=== PATIENT | female | born 1980 | race African-American/Black ===

== ENCOUNTER 2025-02-08 08:52 | Emergency (ER) | payer OTHER, SELFPAY ==
[2025-02-08 09:08] VITALS: BP 125/66; PULSE 51; RESP 16; TEMP 36.9; O2SAT 100
--- NOTE | 2025-02-08 09:14 | ED_ITS ---
HPI - Eye Problem General Chief complaint: Eye Problems Stated complaint: foreign body R eye? Time Seen by Provider: 02/08/25 09:56 44-year-old female presents to the ER complaining of right eye discomfort. Patient states she believes her right eye was bothering her last night with today when she was driving to work she developed worsening pain and swelling to her eye. Patient denies any vision changes the says it hurts to open her eye. Patient states that feels like there is something in her eye. Patient denies any dizziness, lightheadedness headaches, nausea, vomiting, or any other symptoms. Focused HPI: GENERAL: Well-appearing, well-nourished, and in no acute distress. HEAD: Normocephalic, atraumatic. EYES: SCLERA CLEAR/WHITE. CONJUNCTIVA NORMAL. PUPILS PERRLA. EXTRAOCULAR MOVEMENTS INTACT. RIGHT UPPER EYELID EDEMATOUS. NEURO: ?Alert and oriented x3. History of Present Illness HPI Narrative: HPI listed in MSE. Related Data Allergies Allergy/AdvReac Type Severity Reaction Status Date / Time No Known Allergies Allergy Verified 02/08/25 09:10 Review of Systems Review of Systems: CONSTITUTIONAL: Denies fever, chills, or sweats. EYES: Denies visual changes, redness, or discharge. Positive for foreign body sensation and eyelid swelling. ENT: Denies rhinorrhea, congestion, sore throat, or otalgia. CARDIOVASCULAR: Denies chest pain, palpitations, or edema. RESPIRATORY: Denies cough or dyspnea. GASTROINTESTINAL: Denies abdominal pain, nausea, vomiting, or diarrhea. GENITOURINARY: Denies dysuria or hematuria. SKIN: Denies rash or itching. MUSCULOSKELETAL: Denies back pain, joint pain, or myalgia. NEUROLOGIC: Denies headache, numbness, or weakness. PSYCHIATRIC: Denies anxiety or depression. All other systems reviewed are negative, except as documented in HPI. Exam Narrative: GENERAL: This is a well-nourished, well-developed adult, in no apparent distress. They are non ill-appearing, nontoxic appearing. HEAD: normocephalic, atraumatic. EYES: Sclera clear/white. Vision is grossly intact. Conjunctiva normal. Extraocular movements intact. Pupils PERRLA. Right upper eyelid edematous, no redness, nontender. Right lower eyelid normal. Left upper and lower eyelids normal. Eversion of right upper and lower eyelid without any evidence of retained foreign body or stye. Wood's lamp exam with fluorescein staining of right eye: No dendritic lesions, no corneal abrasion, no corneal laceration, no vitreous humor. Tonopen of right eye is 20mmhg. EARS: External ears normal, NOSE: External nose normal THROAT: Mucous membranes moist, NECK: Neck supple, CARDIOVASCULAR: Regular rate and rhythm RESPIRATORY: Respiratory rate normal, respiratory effort nonlabored, no respiratory distress SKIN: warm, Dry, intact with no suspicious lesions or rash, good texture and turgor. NEURO: awake, alert, and oriented to person, place and time. There were no obvious focal neurologic abnormalities. EXTREMITIES: No joint tenderness, effusion, or edema noted. Course Vital Signs Vital signs: Vital Signs Temperature 98.4 F 02/08/25 09:08 Pulse Rate 51 L 02/08/25 09:08 Respiratory Rate 16 02/08/25 09:08 Blood Pressure 125/66 02/08/25 09:08 Pulse Oximetry 100 02/08/25 09:08 Oxygen Delivery Room Air 02/08/25 09:08 Temperature 98.4 F 02/08/25 09:08 Pulse Rate 51 L 02/08/25 09:08 Respiratory Rate 16 02/08/25 09:08 Blood Pressure 125/66 02/08/25 09:08 Pulse Oximetry 100 02/08/25 09:08 Oxygen Delivery Room Air 02/08/25 09:08 MDM - Eye Problem MDM Narrative Medical decision making narrative: No evidence corneal abrasion, globe rupture, or retained foreign body. Tonopen of right eye 20mmhg. No stye. No evidence of infection, no redness, no swelling, no pain. Recommend follow-up with ophthalmology. Discussed physical exam findings. Advised supportive measures and signs/symptoms to go to the ER. Pt is appropriate for outpt treatment and f/u. Differential Diagnosis Differential diagnosis: Likely corneal abrasion, conjunctivitis, periorbital cellulitis and other (Glaucoma) Discharge Plan Discharge Clinical Impression: Discomfort of right eye Patient Disposition: Home Condition: Stable Instructions: Eyelid Swelling (ED) Additional Instructions: Your eye exam was unremarkable. Pressure is normal in your right eye. Please follow-up with your eye doctor symptoms persist. If you develops severe eye pain, nausea, vomiting, headaches, vision loss, vision changes, any serious concerns please return to the ER. Patient Language: [place] Citizen Follow-up/Referrals: UNKNOWN,DOCTOR [Primary Care Provider] - Stand Alone Forms: Work/School Release IP Time of Disposition: 10:34
--- OUTSIDE RECORDS SUMMARY | 2025-02-08 11:06 | XMS_ITS | Clinical Summary ---
Author Organization [facility] Address [address] [place] [address] Care Team Providers Care Supervisor [employer] Name Role Phone Jason Larson MD Primary Care Provider [phone] Source Comments [facility],non-owned Affiliates and Associated Physician Practices is amultiple site organization consisting of ambulatory clinics and hospital sitesin [place], [place] and [place]. This disclosure is being madepursuant to the Care Everywhere program and may not contain all information available regarding this patient. Last updated 18.[facility] Allergies No known active allergies Medications * Be aware that medications may not be up to date on this document. Alwaysverify current medications with the patient. lorazepam (ATIVAN) 1 MG tablet Take 1 Tab by mouth every 2 hours as needed for Anxiety. sever anxiety 10 0 12/29/2009 Active cloNIDine (CATAPRES) 0.1 MG tablet Take 1 Tab by mouth every 4 hours as needed for severe anxiety 20 0 12/29/2009 Active zolpidem (AMBIEN) 10 MG tablet Take 1 Tab by mouth nightly as needed for Insomnia. 10 0 12/29/2009 Active methocarbamol (ROBAXIN) 750 MG tablet Take 1 Tab by mouth 3 times daily as needed for Muscle Spasms. 30 0 12/29/2009 Active famotidine (PEPCID) 20 MG tablet Take 1 Tab by mouth daily. 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 Gender Identity Not on file Sexual Orientation Not on file Last Filed Vital Signs Vital Sign Reading Time Taken Comments Blood Pressure 123/81 12/29/2009 8:13 AM CDT Pulse 50 12/29/2009 8:13 AM CDT Temperature 36.7 C (98 F) 12/29/2009 8:13 AM CDT Respiratory Rate 18 12/29/2009 8:13 AM CDT Oxygen Saturation 99% 12/29/2009 8:13 AM CDT Inhaled Oxygen Concentration - - Weight 59 kg (130 lb) 12/27/2009 3:14 PM CDT Height 157.5 cm (5' 2) 12/27/2009 3:14 PM CDT Body Mass Index 23.78 12/27/2009 3:14 PM CDT Plan of Treatment Health Maintenance Due Date Last Done Comments LIPID TESTING 1982 MAMMOGRAM 1982 HIV SCREENING 1997 HEPATITIS C SCREENING 07/11/2000 DTAP/TDAP/TD VACCINES (1 - Tdap) 2001 HEPATITIS B VACCINE (1 of 3 - 19+ 3-dose series) 2001 HPV VACCINE (1 - 3-dose SCDM series) 2009 COVID-19 VACCINE (2023-2 5 season) 2024 DEPRESSION SCREENING 07/08/2024 INFLUENZA VACCINE (#1) 2025 ZOSTER VACCINE (1 of 2) 2032 HIB VACCINE Aged Out No longer eligi ble based on patient's age to complete this topic MENINGOCOCCAL (Group B) VACC INE SHARED DECISION-MAKING Aged Out No longer eligibl e based on patient's age to complete this topic MENINGOCOCCAL GROUPS A/C/Y/W VACCINE Aged Out No longer eligible b ased on patient's age to complete this topic PNEUMOCOCCAL VACCINE Aged Out No long er eligible based on patient's age to complete this topic Insurance [employer] Advance Directives * Full Code (Latest Code Status on File) Date Activated Date Inactivated Comments 12/27/2009 4:19 PM 12/29/2009 10:40 PM Care Teams Supervisor [employer] Relationship Specialty Start Date End Date Jason Larson MD [address] [place] [id number] PCP - General Cardiovascular Disease 09/13/15
[2025-02-08 11:07] VITALS: BP 112/74; PULSE 62; RESP 18; TEMP 36.9; O2SAT 99
== END 2025-02-08 11:08 | disposition home or self-care (01) ==
DX: H57.11 Ocular pain, right eye (principal)
CPT/HCPCS: 99283